=== PATIENT | male | born 1985 | race Hispanic/Latino ===

== ENCOUNTER 2023-09-21 18:38 | Emergency (ER) | payer SELFPAY ==
[2023-09-21] MEDS ORDERED: predniSONE 20 MG TAB ONE (19:11)
[2023-09-21] MEDS ORDERED: Ipratropium/Albuterol 3 ML NEB ONE (19:30)
== END 2023-09-21 20:16 | disposition home or self-care (01) ==
LOC: CSHERS 18:38
DX: J45.901 Unspecified asthma with (acute) exacerbation (principal)
CPT/HCPCS: 93005; J7512; J7620

== ENCOUNTER 2023-09-22 18:26 | Emergency (ER) | payer SELFPAY ==
[2023-09-22] MEDS ORDERED: predniSONE 20 MG TAB ONE (19:16)
[2023-09-22] MEDS ORDERED: Famotidine 20 MG TAB ONE (19:17)
[2023-09-22] MEDS ORDERED: Albuterol 2.5 MG (0.5 mL) NEB ONE (19:34)
== END 2023-09-22 20:40 | disposition home or self-care (01) ==
LOC: CSHERS 18:26
DX: J44.1 Chronic obstructive pulmonary disease with (acute) exacerbation (principal)
CPT/HCPCS: 99284; J7512; J7611